=== PATIENT | female | born 1985 | race Caucasian/White ===

== ENCOUNTER 2017-01-18 22:08 | Emergency (ER) | payer SELFPAY ==
[2017-01-18] MEDS ORDERED: ONDANSETRON 4 MG TAB.RAPDIS PO ONE (23:22)
[2017-01-18] MEDS ORDERED: OXYCODONE-ACETAMINOPHEN 5-325 MG TABLET PO ONE (23:22)
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
--- NOTE | 2017-01-19 00:20 | RADIOLOGY REPORT (SQ) ---
EXAM DESCRIPTION: KNEE RIGHT 4 VIEWS COMPLETED DATE/TIME: 01/18/2017 11:58 pm REASON FOR STUDY: right knee injury (impact) COMPARISON: None. NUMBER OF VIEWS: Four views. TECHNIQUE: AP, lateral, and both oblique radiographic images acquired of the right knee. LIMITATIONS: None. FINDINGS: MINERALIZATION: Normal. BONES: No acute fracture or dislocation. No worrisome bone lesions. JOINT: No effusion. SOFT TISSUES: No soft tissue swelling. No radio-opaque foreign body. OTHER: No other significant finding. IMPRESSION: NEGATIVE STUDY OF THE RIGHT KNEE. NO RADIOGRAPHIC EVIDENCE OF ACUTE INJURY. TECHNICAL DOCUMENTATION: JOB ID: [id number] [employer]- All Rights Reserved
[2017-01-19] MEDS ORDERED: HYDROCODONE/ACETAMINOPHEN 5-325 MG 6 TAB/DSPK PO PRN (01:05)
[2017-01-19 01:44] VITALS: BP 118/73
== END 2017-01-19 01:03 | disposition home or self-care (01) ==
LOC: ER 22:08
DX: S89.91XA Unspecified injury of right lower leg, initial encounter (principal); W54.1XXA Struck by dog, initial encounter
CPT/HCPCS: 99283; 73564; L1830; S0119

== ENCOUNTER 2017-11-24 14:28 | Emergency (ER) | payer SELFPAY ==
[2017-11-24] MEDS ORDERED: IBUPROFEN 800 MG TABLET PO ONE (15:48)
--- NOTE | 2017-11-24 15:51 | RADIOLOGY REPORT (SQ) ---
EXAM DESCRIPTION: ANKLE RIGHT COMPLETE COMPLETED DATE/TIME: 11/24/2017 3:37 pm REASON FOR STUDY: pain and injury COMPARISON: None. NUMBER OF VIEWS: Three views. TECHNIQUE: AP, lateral, and oblique radiographic images acquired of the right ankle. LIMITATIONS: None. FINDINGS: MINERALIZATION: Normal. BONES: No acute fracture or dislocation. No worrisome bone lesions. JOINTS: Small tibiotalar joint effusion. SOFT TISSUES: Lateral malleolar soft tissue swelling. No foreign body. OTHER: No other significant finding. IMPRESSION: No acute fracture or malalignment. Lateral soft tissue swelling with ankle joint effusi on TECHNICAL DOCUMENTATION: JOB ID: [id number] [employer]- All Rights Reserved Reading location - IP/workstation name: [email or web address]
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
[2017-11-24 16:56] VITALS: BP 92/55
== END 2017-11-24 16:56 | disposition home or self-care (01) ==
LOC: ER 14:28
DX: S93.401A Sprain of unspecified ligament of right ankle, initial encounter (principal); X50.9XXA Other and unspecified overexertion or strenuous movements or postures, initial encounter; F17.210 Nicotine dependence, cigarettes, uncomplicated; Z71.6 Tobacco abuse counseling
CPT/HCPCS: 99406; 99283; 73610; L4350

== ENCOUNTER 2018-02-25 22:12 | Emergency (ER) | payer OTHER ==
[2018-02-25] MEDS ORDERED: HYDROCODONE/ACETAMINOPHEN 5-325 MG TABLET PO ONE (23:06)
[2018-02-25] MEDS ORDERED: DIPH/PERTUSS(ACELL)/TETANUS VAC/PF 0.5 ML SYR (>=10YO) IM ONE (23:07)
[2018-02-25] MEDS ORDERED: SILVER SULFADIAZINE 1% CREAM 50 GM TP ONE (23:07)
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
[2018-02-26] MEDS ORDERED: HYDROCODONE/ACETAMINOPHEN 5-325 MG (6 TAB/ER DISP) PO PRN (00:22)
[2018-02-26] MEDS ORDERED: SILVER SULFADIAZINE 1% CREAM 25 GM ONE (00:27)
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
[2018-02-26 00:47] VITALS: BP 126/72
== END 2018-02-26 00:45 | disposition home or self-care (01) ==
LOC: ER 22:12
DX: T24.192A Burn of first degree of multiple sites of left lower limb, except ankle and foot, initial encounter (principal); S80.12XA Contusion of left lower leg, initial encounter; W39.XXXA Discharge of firework, initial encounter; F17.200 Nicotine dependence, unspecified, uncomplicated; Z23 Encounter for immunization
CPT/HCPCS: 90471; 90715; 99283; J3490

== ENCOUNTER 2019-02-07 22:56 | Emergency (ER) | payer OTHER ==
[2019-02-07 23:18] VITALS: BP 116/65
[2019-02-08] MEDS ORDERED: CEPHALEXIN 500 MG CAPSULE PO ONE (00:03)
--- NOTE | 2019-02-08 00:05 | ER Document Report ---
HPI - HPI Time Seen by Provider: 02/07/19 23:31 Pain Level: 3 Notes: Patient is a 34-year-old female presenting with possible insect bite. Patient states she has a large red area to her left thigh that she first noticed this morning. Patient did not see any insect but thinks she may have been bitten by spider. Patient reports that area is painful but not itchy. She has not tried taking any medications for this. She did place a marking to the area at approximately 4 PM and she states the redness has not changed since that time. - REPRODUCTIVE LMP: 12/24/18 Reproductive: REPORTS: : Past Medical History - General Information source: Patient - Social History Smoking Status: Never Smoker Frequency of alcohol use: None Drug Abuse: None Family History: Reviewed & Not Pertinent Patient has suicidal ideation: No Patient has homicidal ideation: No - Medical History Medical History: Negative Pulmonary Medical History: Reports: Hx Pneumonia Renal/ Medical History: Denies: Hx Peritoneal Dialysis Musculoskeletal Medical History: Reports Hx Arthritis, Reports Hx Musculoskeletal Deformity, Reports Hx Musculoskeletal Trauma Past Surgical History: Reports: Hx Orthopedic Surgery - carpal tunnel - Immunizations Immunizations up to date: Yes Hx Diphtheria, Pertussis, Tetanus Vaccination: Yes Vertical Provider Document - CONSTITUTIONAL Notes: PHYSICAL EXAMINATION: GENERAL: Well-appearing, well-nourished and in no acute distress. HEAD: Atraumatic, normocephalic. EYES: Pupils equal round extraocular movements intact, conjunctiva are normal. ENT: Nares patent NECK: Normal range of motion LUNGS: No respiratory distress Musculoskeletal: Normal range of motion NEUROLOGICAL: Normal speech, normal gait. PSYCH: Normal mood, normal affect. SKIN: Large area of erythema measuring approximately 8 cm in diameter noted to left thigh with approximate 2 cm in diameter area of induration, no fluctuance noted. - INFECTION CONTROL TRAVEL OUTSIDE OF THE [place] IN LAST 30 DAYS: No Course - Re-evaluation Re-evalutation: There is a large area of erythema measuring approximately 8 cm x 8 cm. There is a very small area of this with induration but no fluctuance. I did place an ul trasound to the area to ensure that there is no fluid collection and there is not. No indication for drainage of any type at this time. Patient will be started on cephalexin and encouraged to apply warm compresses to the area. Area was marked with a surgical marker, patient instructed to return to the emergency department if the redness extends past 2 cm outside of the surgical marking. Patient verbalized understanding and agreement with plan. - Vital Signs Vital signs: Temp Pulse Resp BP Pulse Ox 98.4 F 77 16 116/65 100 02/07/19 23:16 02/07/19 23:16 02/07/19 23:16 02/07/19 23:16 02/07/19 23:16 Discharge - Discharge Clinical Impression: Cellulitis Qualifiers: Site of cellulitis: extremity Site of cellulitis of extremity: lower extremity Laterality: left Qualified Code(s): L03.116 - Cellulitis of left lower limb Condition: Stable Disposition: HOME, SELF-CARE Additional Instructions: The rash is likely due to infection of your skin. You need to take the antibiotics as prescribed. Do not stop even if the rash goes away until you have completed all the antibiotics. The area of redness was traced out here in the emergency department with a marking pen. You need to return to emergency department if the redness spreads outside of this area by more than 2 cm in any direction. You should also return if you develop fevers with temperature greater than 101, persistent vomiting, worsening pain, or have any other symptoms that are concerning to you. Prescriptions: Cephalexin [Cephalexin 500 MG Tablet] 1 tab PO QID #40 tablet
== END 2019-02-08 00:15 | disposition home or self-care (01) ==
LOC: ER 22:56
DX: O99.711 Diseases of the skin and subcutaneous tissue complicating pregnancy, first trimester (principal); L03.116 Cellulitis of left lower limb; Z3A.01 Less than 8 weeks gestation of pregnancy
CPT/HCPCS: 99281

== ENCOUNTER 2019-02-08 20:06 | Emergency (ER) | payer OTHER ==
--- NOTE | 2019-02-08 21:14 | ER Document Report ---
ED Medical Screen (RME) - General Stated Complaint: SKIN ISSUE Time Seen by Provider: 02/08/19 21:12 Mode of Arrival: Ambulatory Information source: Patient Notes: Presents to the emergency department reports she was seen here last night after she was bit by something. Placed on antibiotics she reports the area on her thigh has increased erythema and increased pain. No fevers. no pustule noted I have greeted and performed a rapid initial assessment of this patient. A comprehensive ED assessment and evaluation of the patient, analysis of test results and completion of the medical decision making process will be conducted by additional ED providers. Dictation of this chart was performed using voice recognition software; therefore, there may be some unintended grammatical errors. TRAVEL OUTSIDE OF THE [place] IN LAST 30 DAYS: No - Related Data Allergies/Adverse Reactions: No Known Allergies Allergy (Verified 02/07/19 23:00) Past Medical History Pulmonary Medical History: Reports: Hx Pneumonia Renal/ Medical History: Denies: Hx Peritoneal Dialysis Musculoskeltal Medical History: Reports Hx Arthritis, Reports Hx Musculoskeletal Deformity, Reports Hx Musculoskeletal Trauma Past Surgical History: Reports: Hx Orthopedic Surgery - carpal tunnel - Immunizations Immunizations up to date: Yes Hx Diphtheria, Pertussis, Tetanus Vaccination: Yes
[2019-02-09 02:43] LABS: ABSOLUTE BASOPHILS # (AUTO) 0.1 10^3/uL (0.0-0.2); ABSOLUTE EOSINOPHILS # (AUTO) 0.3 10^3/uL (0.0-0.6); ABSOLUTE LYMPHOCYTES (AUTO) 2.4 10^3/uL (0.5-4.7); ABSOLUTE MONOCYTES (AUTO) 0.6 10^3/uL (0.1-1.4); ABSOLUTE NEUT (AUTO) 4.6 10^3/uL (1.7-8.2); EOSINOPHILS % (AUTO) 3.3 % (0-6); HEMATOCRIT 40.7 % (36.0-47.0); HEMOGLOBIN 13.8 g/dL (12.0-15.5); LYMPHOCYTES % (AUTO) 30.6 % (13-45); MEAN CORPUSCULAR HEMOGLOBIN 28.8 pg (27.0-33.4); MEAN CORPUSCULAR VOLUME 85 fl (80-97); MONOCYTES % (AUTO) 7.1 % (3-13); PLATELET COUNT 232 10^3/uL (150-450); RED BLOOD COUNT 4.81 10^6/uL (3.72-5.28); RED CELL DISTRIBUTION WIDTH 13.5 % (11.5-14.0); TOTAL CELLS COUNTED % (AUTO) 100 %
[2019-02-09 02:59] LABS: ALANINE AMINOTRANSFERASE 17 U/L (9-52); ALBUMIN 4.2 g/dL (3.5-5.0); ALKALINE PHOSPHATASE 34 U/L (38-126); ANION GAP 9 (5-19); ASPARTATE AMINO TRANSFERASE 16 U/L (14-36); BILIRUBIN,DIRECT 0.2 mg/dL (0.0-0.4); BILIRUBIN,TOTAL 0.4 mg/dL (0.2-1.3); BLOOD UREA NITROGEN 17 mg/dL (7-20); CALCIUM 9.3 mg/dL (8.4-10.2); CARBON DIOXIDE 26 mmol/L (22-30); CHLORIDE 102 mmol/L (98-107); GLUCOSE 81 mg/dL (75-110); POTASSIUM 4.1 mmol/L (3.6-5.0); SODIUM 137.4 mmol/L (137-145); TOTAL PROTEIN 6.6 g/dL (6.3-8.2)
[2019-02-09] MEDS ORDERED: VANCOMYCIN HCL INJ 1000 MG VIAL IV ONE (04:59)
--- NOTE | 2019-02-09 05:01 | ER Document Report ---
Addendum entered and electronically signed by MARYANN BURRIS FNP 02/09/19 19:09: Course - Re-evaluation Re-evalutation: 02/09/19 04:55 A bedside ultrasound was done by myself, and I was uncertain of whether or not there was an abscess noted on ultrasound, therefore I consulted with Dr. Blackmon, and he assessed the patient and there was no abscess noted on bedside ultrasound. She received a dose of IV antibiotics here in the emergency department. Her hematology and chemistries are both unremarkable. Since the patient has been on Keflex, we will add Bactrim. 02/09/19 08:00 The patient has finished her IV antibiotics. At this time I feel she is safe for discharge. I have a very low suspicion for sepsis. Her vital signs are stable. There is no elevated white blood count. Follow precautions were given. Verbal discharge instructions were given to the patient. They verbalized understanding. They are stable for discharge. - Vital Signs Vital signs: Temp Pulse Resp BP Pulse Ox 97.5 F 81 16 122/65 99 02/09/19 08:13 02/09/19 08:13 02/09/19 08:13 02/09/19 08:13 02/09/19 08:13 - Laboratory Result Diagrams: 02/09/19 02:35 02/09/19 02:35 Laboratory results interpreted by me: 02/09/19 02:35 Alkaline Phosphatase 34 L Addendum entered and electronically signed by MARYANN BURRIS FNP 02/09/19 19:05: Physical Exam - Vital signs Vitals: Temp Pulse Resp BP Pulse Ox 97.9 F 83 18 117/63 98 02/08/19 21:20 02/08/19 21:20 02/08/19 21:20 02/08/19 21:20 02/08/19 21:20 - Notes Notes: PHYSICAL EXAMINATION: GENERAL: Appears well, healthy, well-nourished, no acute distress. HEAD: Normocephalic, atraumatic. EYES: PERRL, conjunctiva normal, all extraocular movements intact, sclera nonicteric ENT: Moist mucous membranes. NECK: Supple, no noticeable swelling, redness, rash. Normal range of motion. LUNGS: Equal breath sounds bilaterally and clear to auscultation. No wheezes rales or rhonchi. CARDIOVASCULAR: S1-S2, regular rate, regular rhythm. Radial pulses 2+, normal. ABDOMEN: Normoactive bowel sounds. Soft, nontender, no guarding, no rebound tenderness, and no masses palpated. EXTREMITIES: Normal strength and range of motion, no pitting or edema. No cyanosis. NEUROLOGICAL: Moves all extremities upon command. Strength 5/5 in all extremities. PSYCH: Normal mood, normal affect. SKIN: Warm, dry. Erythema noted to left upper thigh, consistent with cellulitis. Addendum entered and electronically signed by MARYANN BURRIS FNP 02/09/19 19:04: Review of Systems - Review of Systems Notes: REVIEW OF SYSTEMS: CONSTITUTIONAL : Denies recent illness. Denies recent unintentional weight loss. Denies fever, chills, or sweats. EENT: Denies eye, ear, throat, or mouth pain, discharge, or symptoms. Denies nasal or sinus congestion. CARDIOVASCULAR: Denies chest pain. RESPIRATORY: Denies shortness of breath, cough, congestion, difficulty breathing, or wheezing. GASTROINTESTINAL: Denies nausea, vomiting, and diarrhea. Denies abdominal pain. Denies constipation. GENITOURINARY: Denies difficulty urinating, burning, blood in urine, urgency or frequency. MUSCULOSKELETAL: Denies neck and back pain. Denies joint pain or swelling. SKIN: See HPI HEMATOLOGIC : Denies easy bruising or bleeding. LYMPHATIC: Denies swollen, painful, enlarged glands. NEUROLOGICAL: Denies no numbness or tingling denies weakness. Denies headache. Denies altered mental status. Denies alteration in speech. PSYCHIATRIC: Denies stress, anxiety, alteration in sleep patterns, or depression. All other systems reviewed and negative. Original Note: ED General <KELLY BLACKMON - Last Filed: 02/09/19 05:01> - General Mode of Arrival: Ambulatory TRAVEL OUTSIDE OF THE [place] IN LAST 30 DAYS: No <MARYANN BURRIS - Last Filed: 02/09/19 07:24> <ANGELLA DIAZ - Last Filed: 02/09/19 15:08> - General Chief Complaint: Insect Bite Stated Complaint: SKIN ISSUE Time Seen by Provider: 02/08/19 21:12 Notes: Patient is a 34-year-old female who presents the emergency department with a chi ef complaint of redness to her left upper thigh. She was diagnosed with cellulitis yesterday and was sent home on Keflex. She states that she may have been bit by something in her sleep. She is having redness that is spreading. Denies any fever, body aches, chills, or any other symptoms. (MARYANN BURRIS) - Related Data Allergies/Adverse Reactions: No Known Allergies Allergy (Verified 02/07/19 23:00) Past Medical History - General Information source: Patient - Social History Smoking Status: Former Smoker Chew tobacco use (# tins/day): No Frequency of alcohol use: Rare Drug Abuse: None Family History: Reviewed & Not Pertinent Patient has suicidal ideation: No Patient has homicidal ideation: No Pulmonary Medical History: Reports: Hx Pneumonia Renal/ Medical History: Denies: Hx Peritoneal Dialysis Musculoskeletal Medical History: Reports Hx Arthritis, Reports Hx Musculoskeletal Deformity, Reports Hx Musculoskeletal Trauma Past Surgical History: Reports: Hx Orthopedic Surgery - carpal tunnel - Immunizations Immunizations up to date: Yes Hx Diphtheria, Pertussis, Tetanus Vaccination: Yes <MARYANN BURRIS - Last Filed: 02/09/19 07:24> - Vital signs Vitals: Temp Pulse Resp BP Pulse Ox 97.9 F 83 18 117/63 98 02/08/19 21:20 02/08/19 21:20 02/08/19 21:20 02/08/19 21:20 02/08/19 21:20 Course - Laboratory Result Diagrams: 02/09/19 02:35 02/09/19 02:35 <KELLY BLACKMON - Last Filed: 02/09/19 05:01> - Laboratory Result Diagrams: 02/09/19 02:35 02/09/19 02:35 <FATUMAMARYANN M - Last Filed: 02/09/19 07:24> - Laboratory Result Diagrams: 02/09/19 02:35 02/09/19 02:35 <ANGELLA DIAZ - Last Filed: 02/09/19 15:08> - Re-evaluation Re-evalutation: 02/09/19 05:01 Patient initially seen by the nurse practitioner. She has been coming to evaluate the area and do bedside ultrasound to see if there is any evidence of underlying abscess. Patient has cellulitis to the left thigh. She is recent starting Keflex yesterday but the redness is spread and therefore she is come to the ER. No fevers. No vomiting. She is nondiabetic. No fluctuance or induration to palpation. She does not have pain out of proportion to exam. No crepitus to palpation. I did do bedside ultrasound which did not show any evidence of fluid collection or abscess. I suspect the most likely has an underlying staph infection. I will give her a dose of vancomycin. Also order dose of Rocephin in case there is a strong strep component as well. If patient continues to do well clinically and looks well she will likely be discharged home with her antibiotics will be changed to something that covers staphylococcal infection as well as streptococcal infection. Dictation of this chart was performed using voice recognition software; therefore, there may be some unintended grammatical errors. (KELLY BLACKMON) 02/09/19 15:07 Pt called with Rx question. Pt reports being and taking bactrim. Advised to not take the bactrim and cloth picker new Rx for cleocin. (ANGELLA DIAZ) - Vital Signs Vital signs: Temp Pulse Resp BP Pulse Ox 97.5 F 81 16 122/65 99 02/09/19 08:13 02/09/19 08:13 02/09/19 08:13 02/09/19 08:13 02/09/19 08:13 - Laboratory Laboratory results interpreted by nh: 02/09/19 02:35 Alkaline Phosphatase 34 L Discharge <KELLY BLACKMON - Last Filed: 02/09/19 05:01> <MARYANN BURRIS - Last Filed: 02/09/19 07:24> <ANGELLA DIAZ - Last Filed: 02/09/19 15:08> - Discharge Clinical Impression: Cellulitis Qualifiers: Site of cellulitis: extremity Site of cellulitis of extremity: lower extremity Laterality: left Qualified Code(s): L03.116 - Cellulitis of left lower limb Condition: Stable Disposition: HOME, SELF-CARE Additional Instructions: You were seen today in the emergency department for cellulitis of your left leg. Department. Please continue your Keflex that you are on. You are also being prescribed Bactrim. Please finish all your medication. Again if you see spreading of the redness, please return to the emergency department. Prescriptions: Clindamycin HCl [Cleocin 300 mg Capsule] 300 mg PO TID #30 capsule Forms: Return to Work
[2019-02-09] MEDS ORDERED: OXYCODONE-ACETAMINOPHEN 5-325 MG TABLET PO ONE (05:08)
[2019-02-09] MEDS ORDERED: CEFTRIAXONE 1 GM/D5W RTU 1 GM/50 ML RTUPB IV ONE (05:15)
[2019-02-09 08:15] VITALS: BP 122/65
== END 2019-02-09 08:19 | disposition home or self-care (01) ==
LOC: ER 20:06
DX: L03.116 Cellulitis of left lower limb (principal); Z87.891 Personal history of nicotine dependence
CPT/HCPCS: 36415; 85025; 80053; J3370; J0696

== ENCOUNTER 2019-07-18 18:57 | Outpatient (CLI) | payer OTHER ==
[2019-07-18 19:43] LABS: APPEARANCE,URINE CLEAR; BILIRUBIN,URINE NEGATIVE (NEGATIVE); COLOR,URINE STRAW; GLUCOSE, URINE 50 mg/dL (NEGATIVE); KETONES,URINE NEGATIVE (NEGATIVE); LEUKOCYTE ESTERASE,URINE NEGATIVE (NEGATIVE); NITRITE,URINE NEGATIVE (NEGATIVE); PROTEIN,URINE NEGATIVE (NEGATIVE); UROBILINOGEN,URINE NEGATIVE mg/dL (<2.0)
[2019-07-18] MEDS ORDERED: ACETAMINOPHEN 325 MG TABLET PO ONE (19:54)
[2019-07-18] MEDS ORDERED: HYDROXYZINE PAMOATE 50 MG CAPSULE PO ONE (19:54)
[2019-07-18] MEDS ORDERED: ACETAMINOPHEN 325 MG TABLET ONE (19:55)
[2019-07-18] MEDS ORDERED: HYDROXYZINE PAMOATE 50 MG CAPSULE ONE (19:55)
[2019-07-18 19:59] LABS: URINE AMPHETAMINES SCREEN NEGATIVE; URINE BARBITURATES SCREEN NEGATIVE; URINE BENZODIAZEPINES SCREEN NEGATIVE; URINE COCAINE SCREEN NEGATIVE; URINE MARIJUANA (THC) SCREEN NEGATIVE; URINE METHADONE SCREEN NEGATIVE; URINE PHENCYCLIDINE SCREEN NEGATIVE
[2019-07-18 20:29] LABS: ABSOLUTE BASOPHILS # (AUTO) 0.1 10^3/uL (0.0-0.2); ABSOLUTE EOSINOPHILS # (AUTO) 0.2 10^3/uL (0.0-0.6); ABSOLUTE MONOCYTES (AUTO) 0.6 10^3/uL (0.1-1.4); ABSOLUTE NEUT (AUTO) 5.7 10^3/uL (1.7-8.2); EOSINOPHILS % (AUTO) 1.8 % (0-6); HEMATOCRIT 37.2 % (36.0-47.0); HEMOGLOBIN 12.7 g/dL (12.0-15.5); LYMPHOCYTES % (AUTO) 23.4 % (13-45); MEAN CORPUSCULAR HEMOGLOBIN 28.7 pg (27.0-33.4); MEAN CORPUSCULAR HGB CONC 34.1 g/dL (32.0-36.0); MEAN CORPUSCULAR VOLUME 84 fl (80-97); MONOCYTES % (AUTO) 7.5 % (3-13); PLATELET COUNT 195 10^3/uL (150-450); RED BLOOD COUNT 4.42 10^6/uL (3.72-5.28); RED CELL DISTRIBUTION WIDTH 13.6 % (11.5-14.0); SEGMENTED NEUTROPHILS % (AUTO) 66.3 % (42-78); TOTAL CELLS COUNTED % (AUTO) 100 %; WHITE BLOOD COUNT 8.6 10^3/uL (4.0-10.5)
== END 2019-07-18 20:55 | disposition home or self-care (01) ==
LOC: LC 18:57
PROVIDERS: ATTEND Obstetrics & Gynecology
PROC: 4A1HXCZ Monitoring of Products of Conception, Cardiac Rate, External Approach (ICD-10-PCS; principal; 2019-07-18)
DX: O26.893 Other specified pregnancy related conditions, third trimester (principal); R10.9 Unspecified abdominal pain; Z3A.29 29 weeks gestation of pregnancy
CPT/HCPCS: 36415; 80307; 81001; 85025

== ENCOUNTER 2019-09-29 08:12 | Inpatient (IN) | payer OTHER ==
[2019-09-29] MEDS ORDERED: CEFAZOLIN SODIUM 2 GM in DEXTROSE 5%-WATER 100 ML IV PRN (11:27)
[2019-09-29 12:16] LABS: ABSOLUTE EOSINOPHILS # (AUTO) 0.1 10^3/uL (0.0-0.6); ABSOLUTE LYMPHOCYTES (AUTO) 1.5 10^3/uL (0.5-4.7); ABSOLUTE MONOCYTES (AUTO) 0.6 10^3/uL (0.1-1.4); ABSOLUTE NEUT (AUTO) 7.2 10^3/uL (1.7-8.2); BASOPHILS % (AUTO) 0.3 % (0-2); HEMATOCRIT 40.1 % (36.0-47.0); HEMOGLOBIN 13.8 g/dL (12.0-15.5); LYMPHOCYTES % (AUTO) 16.3 % (13-45); MEAN CORPUSCULAR HEMOGLOBIN 27.4 pg (27.0-33.4); MEAN CORPUSCULAR HGB CONC 34.3 g/dL (32.0-36.0); MEAN CORPUSCULAR VOLUME 80 fl (80-97); MONOCYTES % (AUTO) 6.1 % (3-13); PLATELET COUNT 180 10^3/uL (150-450); RED BLOOD COUNT 5.02 10^6/uL (3.72-5.28); RED CELL DISTRIBUTION WIDTH 14.4 % (11.5-14.0); SEGMENTED NEUTROPHILS % (AUTO) 76.3 % (42-78); TOTAL CELLS COUNTED % (AUTO) 100 %; WHITE BLOOD COUNT 9.5 10^3/uL (4.0-10.5)
[2019-09-29 12:20] LABS: APPEARANCE,URINE CLOUDY; BILIRUBIN,URINE NEGATIVE (NEGATIVE); COLOR,URINE YELLOW; GLUCOSE, URINE NEGATIVE (NEGATIVE); KETONES,URINE NEGATIVE (NEGATIVE); LEUKOCYTE ESTERASE,URINE SMALL (NEGATIVE); NITRITE,URINE NEGATIVE (NEGATIVE); PROTEIN,URINE 30 mg/dL (NEGATIVE); URINE SPECIFIC GRAVITY 1.019; UROBILINOGEN,URINE NEGATIVE mg/dL (<2.0)
[2019-09-29 12:34] LABS: URINE AMPHETAMINES SCREEN NEGATIVE; URINE BARBITURATES SCREEN NEGATIVE; URINE BENZODIAZEPINES SCREEN NEGATIVE; URINE COCAINE SCREEN NEGATIVE; URINE MARIJUANA (THC) SCREEN NEGATIVE; URINE METHADONE SCREEN NEGATIVE; URINE PHENCYCLIDINE SCREEN NEGATIVE
[2019-09-29] MEDS ORDERED: OXYTOCIN/NORMAL SALINE 20 UNIT/1,000 ML RTUINJ ONE (13:40)
[2019-09-29] MEDS ORDERED: FENTANYL CITRATE INJ/PF 100 MCG/2 ML AMPUL ONE (13:40)
[2019-09-29] MEDS ORDERED: GLYCOPYRROLATE INJ 0.4 MG/2 ML VIAL ONE (13:40)
[2019-09-29] MEDS ORDERED: OXYTOCIN 10 UNIT/ML VIAL ONE (13:40)
[2019-09-29] MEDS ORDERED: MIDAZOLAM 2 MG/2 ML INJ ONE (13:40)
[2019-09-29] MEDS ORDERED: DIPHENHYDRAMINE HCL 50 MG/ML VIAL ONE (13:40)
[2019-09-29] MEDS ORDERED: ONDANSETRON HCL INJ/PF 4 MG/2 ML SDV ONE (13:40)
[2019-09-29] MEDS ORDERED: KETOROLAC TROMETHAMINE INJ/PF 30 MG/1 ML SDV ONE (13:41)
[2019-09-29] MEDS ORDERED: METHYLERGONOVINE MALEATE INJ/PF 0.2 MG/1 ML AMPULE ONE (14:37)
[2019-09-29] MEDS ORDERED: MEPERIDINE HCL/PF INJ 25 MG/1 ML DISP.SYRIN IV PRN (15:00)
[2019-09-29] MEDS ORDERED: OXYCODONE-ACETAMINOPHEN 5-325 MG TABLET PO PRN ×3 (15:00→15:10)
[2019-09-29] MEDS ORDERED: MORPHINE SULFATE 10 MG/ML INJ IV PRN (15:00)
[2019-09-29] MEDS ORDERED: DIPHENHYDRAMINE HCL 50 MG/ML VIAL IV PRN (15:00)
[2019-09-29] MEDS ORDERED: PROMETHAZINE HCL INJ 25 MG/1 ML VIAL IV PRN ×3 (15:00→15:10)
[2019-09-29] MEDS ORDERED: FENTANYL CITRATE INJ/PF 100 MCG/2 ML AMPUL IV PRN ×3 (15:00)
[2019-09-29] MEDS ORDERED: OXYTOCIN/NORMAL SALINE 20 UNIT/1,000 ML RTUINJ IV PRN (15:10)
[2019-09-29] MEDS ORDERED: ACETAMINOPHEN 1,000 MG/100 ML RTUPB IV PRN (15:10)
[2019-09-29] MEDS ORDERED: SIMETHICONE 80 MG TAB.CHEW PO PRN (15:10)
[2019-09-29] MEDS ORDERED: RINGERS SOLUTION,LACTATED 1,000 ML IV PRN (15:10)
[2019-09-29] MEDS ORDERED: DIPH/PERTUSS(ACELL)/TETANUS VAC/PF 0.5 ML SYR (>=10YO) IM PRN (15:10)
--- NOTE | 2019-09-29 15:10 | PDOC DELIVERY SUMMARY ---
Delivery Summary - Maternal Hx : II Hx Para: I Hx # Term Pregnancies: 1 Number of Living Children: 1 GITA: 09/29/19 Gestational Age: 39.6 Risk Factors: Other - supspected macrosomia Ruptured Membranes: AROM Time of Rupture: 14:32 Fluids: Clear - Delivery Presentation: Vertex Heart Rate Monitoring: Done Pre-Operatively Support Person Present: Yes Location: OR : Scheduled, Primary Placenta: Within Normal Limits Delivery of Placenta Date: 09/29/19 Delivery of Placenta Time: 14:33 - Medications Type of Anesthesia:: Spinal - Delivery Medications Delivery Meds: Methergine 0.2mg IM - Infant Assess and Care Baby 1 Delivery of Date: 09/29/19 Delivery of Infant Time: 14:33 at 1 minute: 8 at 5 minutes: 9 Preprinted Number On Band: [id number] Infant Skin to Skin: Yes Skin to Skin (Mins): 5 To Nursery At: 14:40 Mode of Transport: Bassinet Baby 1 Female Delivery of Date: 09/29/19 Delivery of Time: 14:33 at 1 minute: 9 at 5 minutes: 9 Preprinted Number On Band: [id number] Infant Skin to Skin: Yes Skin to Skin (Mins): 5 To Nursery At: 14:42 Mode of Transport: Bassinet Delivery Weight: 4,265 Infant Delivery Length: 21 in - Delivery Personnel RN: FRANK COBURN MD: PORTIA RHODES
--- NOTE | 2019-09-29 15:19 | Operative Report ---
Operative Report DATE OF SURGERY: 09/29/19 PREOPERATIVE DIAGNOSIS: 1. Intrauterine at 39-6/7 weeks. 2. Suspec otoniel macrosomia. 3. GBS positive. 4. Rh+. 5. Rubella immune POSTOPERATIVE DIAGNOSIS: Same plus macrosomia OPERATION: Primary low transverse section Via Pfannenstiel SURGEON: PORTIA THOMAS ANESTHESIA: Spinal TISSUE REMOVED OR ALTERED: Placenta COMPLICATIONS: None QUANTITATIVE BLOOD LOSS: 880 INTRAOPERATIVE FINDINGS: Delivery of a viable female at 1433 with a cephalic presentation; Apgars 8 at 1, 9 at 5 with weight of 9 pounds 7 ounces; normal uterus, bilateral tubes and ovaries PROCEDURE: The patient was taken to the operating room where spinal anesthesia was obtained and found to be adequate. She was then prepped and draped in the normal sterile fashion and placed in the dorsal supine position with a leftward tilt. A Pfannenstiel skin incision was then made and carried through to the underlying layers of the fascia with the scalpel. The fascia was incised in the midline and the incision extended laterally with the Lawson scissors. The superior aspect of the fascial incision was then grasped with Mario clamps elevated and the underlying rectus muscles dissected off both bluntly and sharply. Attention was then turned to the inferior aspect of the fascial incision which in a similar fashion was grasped, tented up with Mario clamps, and the rectus muscles dissected off both bluntly and sharply. The rectus muscles were then in the midline and the peritoneum was identified and entered both sharply and bluntly. The peritoneal incision was then extended superiorly and inferiorly with good visualization of the bladder. The bladder blade was inserted and the vesicouterine peritoneum identified grasped with [place]guill[place] pickups and entered sharply with the Metzenbaum scissors. This incision was then extended laterally with the Metzenbaum scissors and a bladder flap created digitally. The bladder blade was then reinserted and the lower uterine segment incised in a transverse fashion with the scalpel. The uterine incision was then extended bluntly and with the bandage scissors. The bladder blade was removed and the 's head was delivered from cephalic presentation, atraumatically. The cord doubly clamped and cut. The infant was handed off to waiting arc trimmer. The placenta was then delivered manually and the uterus exteriorized and cleared of all clots and debris. The uterine incision was then repaired with 0 Vicryl in a running locked fashion. 0-Chromic was used to obtain hemostasis via imbrication of the initial layer. The bladder flap was then repaired with 3-0 Vicryl in a running fashion. The uterus was returned to the patient's abdomen and Interceed was placed overlying the uterine incision, as well as a piece placed vertically on the anterior surface of the uterus, to prevent adhesions. The gutters were cleared of all clots and debris. The peritoneum was then closed in a running fashion with 2-0 Vicryl. All operative sites were noted to be hemostatic. The fascia was reapproximated with 0 Vicryl in a running fashion from each lateral edge to the midline. The subcutaneous fat layer was then closed in an interrupted fashion with 3-0 vicryl. The skin was closed with 4-0 Monocryl in a running, subcuticular fashion. The patient tolerated the procedure well. Sponge, lap, needle and instrument counts are correct x 2. 2 g of Ancef were given prior to skin incision. The patient was taken to the recovery area awake and in stable condition.
[2019-09-29] MEDS ORDERED: ACETAMINOPHEN 1,000 MG/100 ML RTUPB IV ONE (15:48)
[2019-09-29] MEDS ORDERED: MEPERIDINE HCL/PF INJ 25 MG/1 ML DISP.SYRIN ONE (16:21)
[2019-09-29] MEDS ORDERED: OXYCODONE-ACETAMINOPHEN 5-325 MG TABLET ONE (17:05)
[2019-09-29] MEDS: DOCUSATE SODIUM 100 MG CAPSULE PO SCH (18:11)
[2019-09-29] MEDS: HYDROMORPHONE HCL INJ/PF 2 MG/ML AMPULE IV PRN ×2 (18:37→23:30)
[2019-09-29] MEDS: KETOROLAC TROMETHAMINE INJ/PF 30 MG/1 ML SDV IV SCH (21:31)
[2019-09-29] MEDS: OXYCODONE-ACETAMINOPHEN 5-325 MG TABLET PO PRN (21:32)
[2019-09-29] MEDS ORDERED: RINGERS SOLUTION,LACTATED 500 ML IV ONE (23:30)
[2019-09-30] MEDS: OXYCODONE-ACETAMINOPHEN 5-325 MG TABLET PO PRN ×5 (02:37→22:15)
[2019-09-30] MEDS: KETOROLAC TROMETHAMINE INJ/PF 30 MG/1 ML SDV IV SCH ×2 (05:30→16:08)
[2019-09-30 07:19] LABS: HEMATOCRIT 33.1 % (36.0-47.0); MEAN CORPUSCULAR HEMOGLOBIN 27.2 pg (27.0-33.4); MEAN CORPUSCULAR HGB CONC 34.2 g/dL (32.0-36.0); MEAN CORPUSCULAR VOLUME 80 fl (80-97); PLATELET COUNT 156 10^3/uL (150-450); RED BLOOD COUNT 4.16 10^6/uL (3.72-5.28); RED CELL DISTRIBUTION WIDTH 14.4 % (11.5-14.0); WHITE BLOOD COUNT 9.2 10^3/uL (4.0-10.5)
[2019-09-30 07:22] LABS: HEMOGLOBIN 11.3 g/dL (12.0-15.5)
[2019-09-30] MEDS: PRENATAL VITAMIN W DHA CAPSULE PO SCH (10:08)
[2019-09-30] MEDS: DOCUSATE SODIUM 100 MG CAPSULE PO SCH ×2 (10:08→18:40)
--- NOTE | 2019-09-30 10:58 | PDOC PROGRESS REPORT ---
Subjective-OB Progress Note for:: 09/30/19 Physical Exam (OB) Vital Signs: Temp Pulse Resp BP Pulse Ox 97.8 F 75 16 101/54 L 97 09/30/19 08:03 09/30/19 08:03 09/30/19 08:03 09/30/19 08:03 09/30/19 08:03 Intake & Output 09/29/19 09/30/19 10/01/19 06:59 06:59 06:59 Output Total 900 400 Balance -900 -400 Weight 99.79 kg - PIH/Pre-Eclampsia DTR's: 2 + Clonus: Negative Headache: Absent Epigastric Pain: No Visual Changes: No - Dressing Removed: No Incision: Dressing, Well Approximated Closure Type: Opsite - Lochia Lochia Amount: Scant < 10 ml Lochia Color: Rubra/Red - Abdomen Description: Tender, Soft Hernia Present: No Bowel Sounds: Normoactive Flatus Presence: Present Stool: No Fundal Description: Firm, Midline Fundal Height: u/u - u/2 Objective-Diagnostic Laboratory: 09/30/19 06:49 09/29/19 09/29/19 09/29/19 11:46 11:46 11:55 WBC 9.5 RBC 5.02 Hgb 13.8 Hct 40.1 MCV 80 MCH 27.4 MCHC 34.3 RDW 14.4 H Plt Count 180 Seg Neutrophils % 76.3 Urine Color YELLOW Urine Appearance CLOUDY Urine pH 5.0 Ur Specific [place] 1.019 Urine Protein 30 H Urine Glucose (UA) NEGATIVE Urine Ketones NEGATIVE Urine Blood NEGATIVE Urine Nitrite NEGATIVE Ur Leukocyte Esterase SMALL H Urine WBC (Auto) 6 Urine RBC (Auto) 4 Blood Type AB POSITIVE Antibody Screen NEGATIVE 09/30/19 06:49 WBC 9.2 RBC 4.16 Hgb 11.3 L D Hct 33.1 L MCV 80 MCH 27.2 MCHC 34.2 RDW 14.4 H Plt Count 156 Seg Neutrophils % Urine Color Urine Appearance Urine pH Ur Specific [place] Urine Protein Urine Glucose (UA) Urine Ketones Urine Blood Urine Nitrite Ur Leukocyte Esterase Urine WBC (Auto) Urine RBC (Auto) Blood Type Antibody Screen
[2019-09-30] MEDS: IBUPROFEN 800 MG TABLET PO SCH (18:39)
[2019-10-01] MEDS: IBUPROFEN 800 MG TABLET PO SCH ×3 (00:26→11:28)
[2019-10-01] MEDS: OXYCODONE-ACETAMINOPHEN 5-325 MG TABLET PO PRN (04:46)
[2019-10-01] MEDS: DOCUSATE SODIUM 100 MG CAPSULE PO SCH (09:42)
[2019-10-01] MEDS: PRENATAL VITAMIN W DHA CAPSULE PO SCH (09:42)
--- NOTE | 2019-10-01 11:56 | PDOC DISCHARGE SUMMARY ---
Impression - Admit/DC Date/PCP Admission Date/Primary Care Provider: 09/29/19 11:02 PORTIA THOMAS, DO Discharge Date: 10/01/19 - Additional Information Resuscitation Status: Full Code Discharge Diet: As Tolerated, Regular Discharge Activity: Activity As Tolerated, No Driving, No Lifting Over 10 Pounds, No Lifting/Push/Pulling, Pelvic Rest, No tub bath Referrals: [facility] [Provider Group] Prescriptions: Ibuprofen [Motrin 800 mg Tablet] 800 mg PO Q8HP PRN #90 tablet PRN Reason: Oxycodone HCl/Acetaminophen [Percocet 5-325 mg Tablet] 1 tab PO Q4HP PRN #30 tablet PRN Reason: Home Medications: Pnv No.95/Ferrous Fum/Folic AC [ Vitamin Tablet] 1 tab PO DAILY 07/18/19 Ibuprofen [Motrin 800 mg Tablet] 800 mg PO Q8HP PRN #90 tablet 10/01/19 Oxycodone HCl/Acetaminophen [Percocet 5-325 mg Tablet] 1 tab PO Q4HP PRN #30 tablet 10/01/19 HPI Gestational Age: 39+6 Reason(s) for Admission: Ceasarean Section-Primary - for suspected macrosomia Intrapartum Procedure(s): : Low Cervical, Transverse Results Laboratory Results: WBC 9.2 10^3/uL (4.0-10.5) 09/30/19 06:49 RBC 4.16 10^6/uL (3.72-5.28) 09/30/19 06:49 Hgb 11.3 g/dL (12.0-15.5) L D 09/30/19 06:49 Hct 33.1 % (36.0-47.0) L 09/30/19 06:49 MCV 80 fl (80-97) 09/30/19 06:49 MCH 27.2 pg (27.0-33.4) 09/30/19 06:49 MCHC 34.2 g/dL (32.0-36.0) 09/30/19 06:49 RDW 14.4 % (11.5-14.0) H 09/30/19 06:49 Plt Count 156 10^3/uL (150-450) 09/30/19 06:49 Lymph % (Auto) 16.3 % (13-45) 09/29/19 11:46 [place] % (Auto) 6.1 % (3-13) 09/29/19 11:46 Eos % (Auto) 1.0 % (0-6) 09/29/19 11:46 Baso % (Auto) 0.3 % (0-2) 09/29/19 11:46 Absolute Neuts (auto) 7.2 10^3/uL (1.7-8.2) 09/29/19 11:46 Absolute Lymphs (auto) 1.5 10^3/uL (0.5-4.7) 09/29/19 11:46 Absolute Monos (auto) 0.6 10^3/uL (0.1-1.4) 09/29/19 11:46 Absolute Eos (auto) 0.1 10^3/uL (0.0-0.6) 09/29/19 11:46 Absolute Basos (auto) 0.0 10^3/uL (0.0-0.2) 09/29/19 11:46 Seg Neutrophils % 76.3 % (42-78) 09/29/19 11:46 Urine Color YELLOW 09/29/19 11:55 Urine Appearance CLOUDY 09/29/19 11:55 Urine pH 5.0 (5.0-9.0) 09/29/19 11:55 Ur Specific [place] 1.019 09/29/19 11:55 Urine Protein 30 mg/dL (NEGATIVE) H 09/29/19 11:55 Urine Glucose (UA) NEGATIVE mg/dL (NEGATIVE) 09/29/19 11:55 Urine Ketones NEGATIVE mg/dL (NEGATIVE) 09/29/19 11:55 Urine Blood NEGATIVE (NEGATIVE) 09/29/19 11:55 Urine Nitrite NEGATIVE (NEGATIVE) 09/29/19 11:55 Urine Bilirubin NEGATIVE (NEGATIVE) 09/29/19 11:55 Urine Urobilinogen NEGATIVE mg/dL (<2.0) 09/29/19 11:55 Ur Leukocyte Esterase SMALL (NEGATIVE) H 09/29/19 11:55 Urine WBC (Auto) 6 /HPF 09/29/19 11:55 Urine RBC (Auto) 4 /HPF 09/29/19 11:55 Urine Bacteria (Auto) 1+ /HPF 09/29/19 11:55 Squamous Epi Cells Auto 17 /HPF 09/29/19 11:55 Urine Mucus (Auto) FEW /LPF 09/29/19 11:55 Urine Ascorbic Acid NEGATIVE (NEGATIVE) 09/29/19 11:55 Urine Opiates Screen NEGATIVE 09/29/19 11:55 Urine Methadone Screen NEGATIVE 09/29/19 11:55 Ur Barbiturates Screen NEGATIVE 09/29/19 11:55 Ur Phencyclidine Scrn NEGATIVE 09/29/19 11:55 Ur Amphetamines Screen NEGATIVE 09/29/19 11:55 U Benzodiazepines Scrn NEGATIVE 09/29/19 11:55 Urine Cocaine Screen NEGATIVE 09/29/19 11:55 U Marijuana (THC) Screen NEGATIVE 09/29/19 11:55 Blood Type AB POSITIVE 09/29/19 11:46 Antibody Screen NEGATIVE 09/29/19 11:46 Plan Plan of Treatment: follow up in one week at [facility] for post check
[2019-10-01 12:08] VITALS: BP 115/68
== END 2019-10-01 13:25 | disposition home or self-care (01) | DRG 788 ==
LOC: 2S 11:02
PROVIDERS: ADMIT Obstetrics & Gynecology; ATTEND Obstetrics & Gynecology
PROC: 10D00Z1 Extraction of Products of Conception, Low, Open Approach (ICD-10-PCS; principal; 2019-09-29 13:30)
DX: O36.63X0 Maternal care for excessive fetal growth, third trimester, not applicable or unspecified (principal); O99.824 Streptococcus B carrier state complicating childbirth; Z3A.39 39 weeks gestation of pregnancy; Z37.0 Single live birth
CPT/HCPCS: 1961; 36415; 59025; 80307; 81001; 85025; 85027; 86850; 86900; 86901; 94760; 94799; C1765; J0131; J0690; J1170; J1200; J1885; J2175; J2210; J2250; J2405; J2590; J3010; J3490; J7060; J7120

== ENCOUNTER 2020-05-30 11:47 | Emergency (ER) | payer OTHER ==
--- NOTE | 2020-05-30 12:56 | ER Document Report ---
ED Medical Screen (RME) - General Chief Complaint: Vaginal Bleeding Stated Complaint: VAGINAL BLEEDING Time Seen by Provider: 05/30/20 12:53 Mode of Arrival: Ambulatory Information source: Patient Notes: 35-year-old female presented to ED for complaint of heavy vaginal bleeding. She states a few months ago she was told that the ingrowth that was forming was not normal and they offered her D&C or to let herself miscarry on her own. She elected to let it do it naturally. She states they did blood levels on 16 May and told her that the levels were dropping. She states this morning she started to have a bleeding this morning she started heavy bleeding with large clots. She states she is gone through 2 pads in the last hour plus lost some heavy clots into the bathroom. Get blood urine and type and screen and have seen by the doctors. I will also do a transvaginal ultrasound. I have greeted and performed a rapid initial assessment of this patient. A comprehensive ED assessment and evaluation of the patient, analysis of test results and completion of medical decision making process will be conducted by an additional ED providers. TRAVEL OUTSIDE OF THE [place] IN LAST 30 DAYS: No - Related Data Allergies/Adverse Reactions: No Known Allergies Allergy (Verified 07/18/19 19:53) Past Medical History Pulmonary Medical History: Reports: Hx Pneumonia Neurological Medical History: Denies: Hx Cerebrovascular Accident, Hx Seizures Renal/ Medical History: Denies: Hx Peritoneal Dialysis Musculoskeltal Medical History: Reports Hx Arthritis, Reports Hx Musculoskeletal Deformity, Reports Hx Musculoskeletal Trauma Past Surgical History: Reports: Hx Orthopedic Surgery - carpal tunnel - Immunizations Immunizations up to date: Yes Hx Diphtheria, Pertussis, Tetanus Vaccination: Yes Physical Exam - Vital signs Vitals: Temp Pulse Resp BP Pulse Ox 98.2 F 102 H 16 117/74 99 05/30/20 12:27 05/30/20 12:27 05/30/20 12:27 05/30/20 12:27 05/30/20 12:27 Course - Vital Signs Vital signs: Temp Pulse Resp BP Pulse Ox 98.2 F 102 H 16 117/74 99 05/30/20 12:27 05/30/20 12:27 05/30/20 12:27 05/30/20 12:27 05/30/20 12:27
[2020-05-30] MEDS ORDERED: ACETAMINOPHEN 325 MG TABLET PO ONE (12:59)
[2020-05-30] MEDS ORDERED: NORMAL SALINE 1000 ML 1,000 ML IV ONE (13:53)
[2020-05-30] MEDS ORDERED: MORPHINE SULFATE 10 MG/ML INJ IV ONE (13:53)
[2020-05-30] MEDS ORDERED: ONDANSETRON HCL INJ/PF 4 MG/2 ML SDV IV ONE (13:53)
--- NOTE | 2020-05-30 14:42 | RADIOLOGY REPORT (SQ) ---
EXAM DESCRIPTION: U/S NON-OB PELVIS W/O DOP IMAGES COMPLETED DATE/TIME: 05/30/2020 2:26 pm REASON FOR STUDY: Incomplete miscarriage heavy vaginal bleeding pelv COMPARISON: None. TECHNIQUE: Dynamic and static grayscale images acquired of the pelvis via transabdominal approach an d recorded on PACS. Additional selected color Doppler and spectral images recorded. LIMITATIONS: None. FINDINGS: UTERUS: Contour normal. No mass. ENDOMETRIAL STRIPE: The endometrium appears uniformly thickened and heterogeneous ; partially septate morphology may be present. No discrete central vascularity. CERVIX: No nabothian cysts. RIGHT OVARY AND DOPPLER: Normal size. No worrisome masses. Normal arterial vascular flow without evid ence for torsion. LEFT OVARY AND DOPPLER: Ovary not visualized. FREE FLUID: None noted. OTHER: No other significant finding. MEASUREMENTS: UTERUS: 11.0 x 6.9 x 6.4 cm ENDOMETRIAL STRIPE: 3.1 cm RIGHT OVARY: 2.7 x 1.9 x 1.9 cm LEFT OVARY: Not visualized. IMPRESSION: Thickened, heterogeneous appearance of the endometrial echo complex with findings sugges ting normal variant septate morphology. No definite central vascularity to suggest retained products of conception. TECHNICAL DOCUMENTATION: JOB ID: [id number] [email or web address]- All Rights Reserved Rev-01/09 Reading location - IP/workstation name: [email or web address]
[2020-05-30 14:43] LABS: ABSOLUTE BASOPHILS # (AUTO) 0.1 10^3/uL (0.0-0.2); ABSOLUTE EOSINOPHILS # (AUTO) 0.2 10^3/uL (0.0-0.6); ABSOLUTE LYMPHOCYTES (AUTO) 2.2 10^3/uL (0.5-4.7); ABSOLUTE MONOCYTES (AUTO) 0.5 10^3/uL (0.1-1.4); ABSOLUTE NEUT (AUTO) 5.3 10^3/uL (1.7-8.2); EOSINOPHILS % (AUTO) 1.9 % (0-6); HEMATOCRIT 39.8 % (36.0-47.0); HEMOGLOBIN 13.9 g/dL (12.0-15.5); LYMPHOCYTES % (AUTO) 26.7 % (13-45); MEAN CORPUSCULAR HGB CONC 34.9 g/dL (32.0-36.0); MEAN CORPUSCULAR VOLUME 83 fl (80-97); MONOCYTES % (AUTO) 6.6 % (3-13); PLATELET COUNT 226 10^3/uL (150-450); RED BLOOD COUNT 4.78 10^6/uL (3.72-5.28); RED CELL DISTRIBUTION WIDTH 13.2 % (11.5-14.0); SEGMENTED NEUTROPHILS % (AUTO) 63.8 % (42-78); TOTAL CELLS COUNTED % (AUTO) 100 %; WHITE BLOOD COUNT 8.3 10^3/uL (4.0-10.5)
[2020-05-30 15:01] LABS: ALBUMIN 4.1 g/dL (3.5-5.0); ALKALINE PHOSPHATASE 67 U/L (38-126); ANION GAP 9 (5-19); ASPARTATE AMINO TRANSFERASE 19 U/L (14-36); BILIRUBIN,DIRECT 0.3 mg/dL (0.0-0.4); BILIRUBIN,TOTAL 0.4 mg/dL (0.2-1.3); BLOOD UREA NITROGEN 17 mg/dL (7-20); CALCIUM 8.9 mg/dL (8.4-10.2); CARBON DIOXIDE 21 mmol/L (22-30); CHLORIDE 106 mmol/L (98-107); GLUCOSE 85 mg/dL (75-110); POTASSIUM 4.1 mmol/L (3.6-5.0); TOTAL PROTEIN 6.7 g/dL (6.3-8.2)
--- NOTE | 2020-05-30 15:16 | ER Document Report ---
ED General - General Chief Complaint: Vaginal Bleeding Stated Complaint: VAGINAL BLEEDING Time Seen by Provider: 05/30/20 12:53 Mode of Arrival: Ambulatory Information source: Patient TRAVEL OUTSIDE OF THE [place] IN LAST 30 DAYS: No - HPI Notes: Patient complains of lower abdominal crampy pain as well as vaginal bleeding. She states she had an ultrasound performed approximately 2 weeks ago which showed a impending miscarriage. She states starting today she began to have lower abdominal cramping and vaginal bleeding with clots. She denies any lighth eadedness or dizziness. She has felt somewhat weak. The abdominal pain is a crampy sensation and mild to moderate. Nothing makes it better or worse. It does radiate across the lower parts of her abdomen. She has no known bleeding disorders. - Related Data Allergies/Adverse Reactions: No Known Allergies Allergy (Verified 07/18/19 19:53) Past Medical History - General Information source: Patient - Social History Smoking Status: Never Smoker Frequency of alcohol use: None Drug Abuse: None Family History: Reviewed & Not Pertinent Pulmonary Medical History: Reports: Hx Pneumonia Neurological Medical History: Denies: Hx Cerebrovascular Accident, Hx Seizures Renal/ Medical History: Denies: Hx Peritoneal Dialysis Musculoskeletal Medical History: Reports Hx Arthritis, Reports Hx Musculoskeletal Deformity, Reports Hx Musculoskeletal Trauma Past Surgical History: Reports: Hx Orthopedic Surgery - carpal tunnel - Immunizations Immunizations up to date: Yes Hx Diphtheria, Pertussis, Tetanus Vaccination: Yes Review of Systems - Review of Systems Constitutional: denies: Chills, Fever Cardiovascular: denies: Chest pain, Palpitations Respiratory: denies: Cough, Short of breath -: Yes All other systems reviewed and negative Physical Exam - Vital signs Vitals: Temp Pulse Resp BP Pulse Ox 98.2 F 102 H 16 117/74 99 05/30/20 12:27 05/30/20 12:27 05/30/20 12:27 05/30/20 12:27 05/30/20 12:27 Interpretation: Tachycardic - Patient was mildly tachycardic at triage but she is no longer tachycardic with heart rate of 90 - General General appearance: Appears well, Alert - HEENT Head: Normocephalic, Atraumatic Eyes: Normal Pupils: PERRL - Respiratory Respiratory status: No respiratory distress Chest status: Nontender Breath sounds: Normal Chest palpation: Normal - Cardiovascular Rhythm: Regular Heart sounds: Normal auscultation Murmur: No - Abdominal Inspection: Normal Distension: No distension Bowel sounds: Normal Tenderness: Nontender Organomegaly: No organomegaly - Back Back: Normal, Nontender - Extremities General upper extremity: Normal inspection, Nontender, Normal color, Normal ROM, Normal temperature General lower extremity: Normal inspection, Nontender, Normal color, Normal ROM, Normal temperature, Normal weight bearing. No: Marielos's sign - Neurological Neuro grossly intact: Yes Cognition: Normal Orientation: AAOx4 [place] Coma Scale Eye Opening: Spontaneous [place] Coma Scale Verbal: Oriented [place] Coma Scale Motor: Obeys Commands [place] Coma Scale Total: 15 Speech: Normal Motor strength normal: LUE, RUE, LLE, RLE Sensory: Normal - Psychological Associated symptoms: Normal affect, Normal mood - Skin Skin Temperature: Warm Skin Moisture: Dry Skin Color: Normal Course - Re-evaluation Re-evalutation: 05/30/20 15:16 Patient presents with obvious spontaneous . Her vital signs are stable. Her hemoglobin and hematocrit are stable. She is ambulated to the restroom multiple times without any dizziness or significant symptoms. Her ultrasound shows no evidence of retained products. I did discuss the case with PICKUP DRIVER who feels the patient can safely follow-up in the office. - Vital Signs Vital signs: Temp Pulse Resp BP Pulse Ox 98.2 F 102 H 16 117/74 99 05/30/20 12:54 05/30/20 12:27 05/30/20 12:27 05/30/20 12:27 05/30/20 12:27 - Laboratory Result Diagrams: 05/30/20 14:20 05/30/20 14:20 Laboratory results interpreted by me: 05/30/20 05/30/20 14:20 14:20 Sodium 136.2 L Carbon Dioxide 21 L Creatinine 0.42 L Beta HCG, Quant 7631.30 H Urine Protein 100 H Urine Glucose (UA) 50 H Urine Ketones TRACE H Urine Blood LARGE H - Diagnostic Test Radiology reviewed: Image reviewed, Reports reviewed Discharge - Discharge Clinical Impression: Spontaneous Condition: Stable Disposition: HOME, SELF-CARE Instructions: Miscarriage ([facility]) Prescriptions: Hydrocodone/Acetaminophen [[place] 5-325 mg Tablet] 1 tab PO Q6 PRN 3 Days #12 tablet PRN Reason: For Pain Forms: Return to Work Referrals: CHELSEY NUNEZ MD [ACTIVE STAFF] - Follow up in 3-5 days
[2020-05-30 15:19] LABS: APPEARANCE,URINE TURBID; BILIRUBIN,URINE NEGATIVE (NEGATIVE); COLOR,URINE RED; GLUCOSE, URINE 50 mg/dL (NEGATIVE); KETONES,URINE TRACE mg/dL (NEGATIVE); LEUKOCYTE ESTERASE,URINE NEGATIVE (NEGATIVE); NITRITE,URINE NEGATIVE (NEGATIVE); PROTEIN,URINE 100 mg/dL (NEGATIVE); URINE SPECIFIC GRAVITY 1.028; UROBILINOGEN,URINE NEGATIVE mg/dL (<2.0)
[2020-05-30 15:30] VITALS: BP 118/57
== END 2020-05-30 15:36 | disposition home or self-care (01) ==
LOC: ER 11:47
DX: O03.9 Complete or unspecified spontaneous abortion without complication (principal); R10.30 Lower abdominal pain, unspecified; R53.1 Weakness; R00.0 Tachycardia, unspecified
CPT/HCPCS: 99285; 96361; 96374; 96375; 36415; 84702; 85025; 80053; 81001; 76856; J2270; J2405; J7030

== ENCOUNTER 2020-05-31 14:36 | Observation (INO) | payer OTHER ==
[2020-05-31] MEDS ORDERED: RINGERS SOLUTION,LACTATED 1,000 ML IV PRN ×2 (15:09→19:28)
[2020-05-31 16:42] LABS: HEMATOCRIT 33.6 % (36.0-47.0); HEMOGLOBIN 11.9 g/dL (12.0-15.5); MEAN CORPUSCULAR HEMOGLOBIN 29.2 pg (27.0-33.4); MEAN CORPUSCULAR HGB CONC 35.3 g/dL (32.0-36.0); MEAN CORPUSCULAR VOLUME 83 fl (80-97); PLATELET COUNT 234 10^3/uL (150-450); RED BLOOD COUNT 4.07 10^6/uL (3.72-5.28); RED CELL DISTRIBUTION WIDTH 13.1 % (11.5-14.0); WHITE BLOOD COUNT 9.9 10^3/uL (4.0-10.5)
[2020-05-31] MEDS ORDERED: PROPOFOL INJ 200 MG/20 ML VIAL IV ONE (18:31)
[2020-05-31] MEDS ORDERED: MIDAZOLAM 2 MG/2 ML INJ ONE (18:31)
[2020-05-31] MEDS ORDERED: FENTANYL CITRATE INJ/PF 100 MCG/2 ML AMPUL ONE ×2 (18:31→19:41)
[2020-05-31] MEDS ORDERED: LIDOCAINE 1% INJ-PF (10 MG/ML) 30 ML SDV ONE (19:15)
[2020-05-31] MEDS ORDERED: MISOPROSTOL 0.2 MG TABLET ONE (19:22)
[2020-05-31] MEDS ORDERED: OXYCODONE-ACETAMINOPHEN 5-325 MG TABLET PO PRN ×2 (19:28)
[2020-05-31] MEDS ORDERED: IBUPROFEN 800 MG TABLET PO PRN (19:28)
[2020-05-31] MEDS ORDERED: KETOROLAC TROMETHAMINE INJ/PF 30 MG/1 ML SDV IV PRN (19:28)
[2020-05-31] MEDS ORDERED: DIPHENHYDRAMINE HCL 50 MG/ML VIAL IV PRN (19:29)
[2020-05-31] MEDS ORDERED: FENTANYL CITRATE INJ/PF 100 MCG/2 ML AMPUL IV PRN ×3 (19:29)
[2020-05-31] MEDS ORDERED: PROMETHAZINE HCL INJ 25 MG/1 ML VIAL IV PRN (19:29)
[2020-05-31] MEDS ORDERED: MORPHINE SULFATE 10 MG/ML INJ IV PRN (19:29)
[2020-05-31] MEDS ORDERED: MEPERIDINE HCL/PF INJ 25 MG/1 ML DISP.SYRIN IV PRN (19:29)
[2020-05-31] MEDS ORDERED: KETOROLAC TROMETHAMINE INJ/PF 30 MG/1 ML SDV ONE (19:37)
[2020-05-31] MEDS ORDERED: ONDANSETRON HCL INJ/PF 4 MG/2 ML SDV ONE (19:41)
--- NOTE | 2020-05-31 20:11 | Operative Report ---
Operative Report DATE OF SURGERY: 05/31/20 PREOPERATIVE DIAGNOSIS: Incomplete AB POSTOPERATIVE DIAGNOSIS: Same OPERATION: Suction D&C SURGEON: JAIMEE SUN ANESTHESIA: Moderate Sedation TISSUE REMOVED OR ALTERED: endometrial currettings COMPLICATIONS: None ESTIMATED BLOOD LOSS: 100 cc INTRAOPERATIVE FINDINGS: Uterus sounded to 12-1/2 cm, cervix was dilated approximately 1/2 cm and extruding large blood clots at the time PROCEDURE: Patient was taken to the operating room prepared and draped in a normal sterile fashion in a dorsal lithotomy position. Sterile speculum was placed into the vagina and the cervix was prepped with Betadine and grasped on the anterior lip with a single-tooth tenaculum. The uterus was sounded to the above findings. The cervix was dilated to accommodate an 8 mm curved curette. The curved curette was passed x3 under suction and a small amount of decidual type tissue was removed. Curettage was performed using Kevorkian curette. Good great was noted 360 degrees around. More pass with the suction curette no further tissue. The procedure was then concluded instruments were removed sponge lap and needle counts were correct x2. She was taken to recovery in stable condition
--- NOTE | 2020-06-01 07:25 | PDOC DISCHARGE SUMMARY ---
Impression - Admit/DC Date/PCP Admission Date/Primary Care Provider: 05/31/20 14:36 Discharge Date: 06/01/20 - Discharge Diagnosis (1) Incomplete Is this a current diagnosis for this admission?: Yes (2) Episode of heavy vaginal bleeding Is this a current diagnosis for this admission?: Yes - Assessment Summary: patient sent form office yesterday with heavy vaginal bleeding due to incomplete aboration. She underwent a D&C last evening without complications. She has had scant bleeding since. I am having another CBC drawn this AM and planning discharge home with those results - Additional Information Resuscitation Status: Full Code Discharge Diet: As Tolerated Discharge Activity: Balance Activity w/Rest, Pelvic Rest, No tub bath Prescriptions: Oxycodone HCl/Acetaminophen [Percocet 5-325 mg Tablet] 1 tab PO Q4HP PRN #20 tablet PRN Reason: Doxycycline Hyclate 100 mg PO BID #10 tablet. Ibuprofen [Motrin 800 mg Tablet] 800 mg PO Q8H PRN #60 tablet PRN Reason: Home Medications: Pnv No.95/Ferrous Fum/Folic AC [ Vitamin Tablet] 1 tab PO DAILY 07/18/19 Ibuprofen [Motrin 800 mg Tablet] 800 mg PO Q8HP PRN #90 tablet 10/01/19 Oxycodone HCl/Acetaminophen [Percocet 5-325 mg Tablet] 1 tab PO Q4HP PRN #30 tablet 10/01/19 Hydrocodone/Acetaminophen [[place] 5-325 mg Tablet] 1 tab PO Q6 PRN 3 Days #12 tablet 05/30/20 Doxycycline Hyclate 100 mg PO BID #10 tablet. 06/01/20 Ibuprofen [Motrin 800 mg Tablet] 800 mg PO Q8H PRN #60 tablet 06/01/20 Oxycodone HCl/Acetaminophen [Percocet 5-325 mg Tablet] 1 tab PO Q4HP PRN #20 tablet 06/01/20 History of Present Illiness History of Present Illness: DONALD JONES is a 35 year old female Physical Exam - Physical Exam Vital Signs: Temp Pulse Resp BP Pulse Ox 98.1 F 64 16 100/47 L 97 06/01/20 04:00 06/01/20 04:00 06/01/20 04:00 06/01/20 04:00 06/01/20 04:00 Intake & Output 05/31/20 06/01/20 06/02/20 06:59 06:59 06:59 Intake Total 1000 Output Total 600 Balance 400 Weight 72.2 kg Results Laboratory Results: WBC 9.9 10^3/uL (4.0-10.5) 05/31/20 16:17 RBC 4.07 10^6/uL (3.72-5.28) 05/31/20 16:17 Hgb 11.9 g/dL (12.0-15.5) L 05/31/20 16:17 Hct 33.6 % (36.0-47.0) L 05/31/20 16:17 MCV 83 fl (80-97) 05/31/20 16:17 MCH 29.2 pg (27.0-33.4) 05/31/20 16:17 MCHC 35.3 g/dL (32.0-36.0) 05/31/20 16:17 RDW 13.1 % (11.5-14.0) 05/31/20 16:17 Plt Count 234 10^3/uL (150-450) 05/31/20 16:17 Stroke Is this a Stroke Patient?: No Acute Heart Failure Is this a Heart Failure Patient?: No
[2020-06-01 07:32] LABS: HEMATOCRIT 30.9 % (36.0-47.0); HEMOGLOBIN 10.9 g/dL (12.0-15.5); MEAN CORPUSCULAR HGB CONC 35.1 g/dL (32.0-36.0); MEAN CORPUSCULAR VOLUME 83 fl (80-97); PLATELET COUNT 213 10^3/uL (150-450); RED BLOOD COUNT 3.75 10^6/uL (3.72-5.28); RED CELL DISTRIBUTION WIDTH 13.3 % (11.5-14.0); WHITE BLOOD COUNT 7.3 10^3/uL (4.0-10.5)
[2020-06-01 10:43] VITALS: BP 100/47
== END 2020-06-01 11:15 | disposition home or self-care (01) ==
LOC: 2N 14:36
PROVIDERS: ADMIT Obstetrics & Gynecology; ATTEND Obstetrics & Gynecology
DX: O03.4 Incomplete spontaneous abortion without complication (principal); Z79.899 Other long term (current) drug therapy
CPT/HCPCS: 36415 ×2; 85027 ×2; 88305 ×2; 99140; 01965; 59820; G0378 ×2; G0379; J2250; J3010; J3490; J1885; J2405; J2704; 1965